=== PATIENT | male | born 1965 | race Caucasian/White ===

== ENCOUNTER 2017-09-04 11:03 | Emergency (ER) | payer MEDICARE, MEDICAID ==
[~2017-09-04] VITALS: Ht 177.8 cm; Wt 60.0 kg
[~2017-09-04 11:03] MED LIST: CYCL-1 PO; DICL75TA5 PO; HYDR-3965 PO; HYDR-569 PO
[2017-09-04 11:18] VITALS: BP 118/73
[2017-09-04] MEDS ORDERED: ONDA4TAB9 PO (12:12)
[2017-09-04] MEDS ORDERED: HYDR-3965 PO (12:12)
[2017-09-04] MEDS ORDERED: acetaminophen 325mg tablet PO ONE (12:15)
== END 2017-09-04 12:59 | disposition home or self-care (01) ==
LOC: ER 11:03
DX: G89.29 Other chronic pain (principal); M79.642 Pain in left hand; M79.641 Pain in right hand; G43.909 Migraine, unspecified, not intractable, without status migrainosus; Z88.0 Allergy status to penicillin; Z79.899 Other long term (current) drug therapy
CPT/HCPCS: 99283

== ENCOUNTER 2017-11-01 11:33 | Emergency (ER) | payer MEDICARE, MEDICAID ==
[~2017-11-01] VITALS: Ht 180.3 cm; Wt 61.0 kg
[2017-11-01 11:39] VITALS: BP 138/81
[2017-11-01] MEDS ORDERED: ONDA4TAB9 PO (12:35)
[2017-11-01] MEDS ORDERED: HYDR-565 PO (12:35)
== END 2017-11-01 12:55 | disposition home or self-care (01) ==
LOC: ER 11:34
DX: M79.641 Pain in right hand (principal); M79.642 Pain in left hand; G43.909 Migraine, unspecified, not intractable, without status migrainosus; M19.90 Unspecified osteoarthritis, unspecified site; Z88.0 Allergy status to penicillin; Z91.030 Bee allergy status; Z79.899 Other long term (current) drug therapy
CPT/HCPCS: 99283

== ENCOUNTER 2017-12-09 23:36 | Emergency (ER) | payer MEDICARE, MEDICAID ==
[~2017-12-09] VITALS: Ht 177.8 cm; Wt 62.7 kg
[2017-12-09 23:46] VITALS: BP 118/92
[2017-12-10] MEDS ORDERED: DOXY-200 PO (00:12)
== END 2017-12-10 00:37 | disposition home or self-care (01) ==
LOC: ER 23:37
DX: M79.674 Pain in right toe(s) (principal); L84 Corns and callosities; G43.909 Migraine, unspecified, not intractable, without status migrainosus; Z86.19 Personal history of other infectious and parasitic diseases; M19.90 Unspecified osteoarthritis, unspecified site; Z88.0 Allergy status to penicillin; Z91.030 Bee allergy status; Z98.890 Other specified postprocedural states
CPT/HCPCS: 99283

== ENCOUNTER 2017-12-25 06:55 | Emergency (ER) | payer MEDICAID, MEDICARE, OTHER ==
[~2017-12-25] VITALS: Ht 177.8 cm; Wt 62.0 kg
[2017-12-25 06:58] VITALS: BP_SYST 110
[2017-12-25] MEDS ORDERED: acetaminophen 325mg tablet PO ONE (07:25)
[2017-12-25] MEDS ORDERED: ibuprofen tablet 400 MG TABLET PO ONE (07:25)
[2017-12-25 07:28] VITALS: BP_DIAS 80
[2017-12-25] MEDS ORDERED: HYDROcodone/acetaminophen 5mg/325mg tablet PO ONE (07:30)
== END 2017-12-25 09:04 | disposition home or self-care (01) ==
LOC: ER 06:56
DX: S62.396A Other fracture of fifth metacarpal bone, right hand, initial encounter for closed fracture (principal); G43.909 Migraine, unspecified, not intractable, without status migrainosus; Z88.0 Allergy status to penicillin; Z91.030 Bee allergy status; Z79.899 Other long term (current) drug therapy; Z98.890 Other specified postprocedural states; W22.8XXA Striking against or struck by other objects, initial encounter; Y93.E5 Activity, floor mopping and cleaning; Y92.89 Other specified places as the place of occurrence of the external cause; Y99.8 Other external cause status
CPT/HCPCS: 29125; 73130; 99284

== ENCOUNTER 2018-01-03 09:10 | Outpatient (CLI) | payer OTHER ==
[2018-01-03 09:08] VITALS: BP 127/75
== END 2018-01-03 09:45 | disposition home or self-care (01) ==
LOC: ORTHO 09:10
PROVIDERS: ATTEND Nurse Practitioner Family
DX: M79.89 Other specified soft tissue disorders (principal); M25.541 Pain in joints of right hand; M19.90 Unspecified osteoarthritis, unspecified site; J45.909 Unspecified asthma, uncomplicated; F17.200 Nicotine dependence, unspecified, uncomplicated; F10.10 Alcohol abuse, uncomplicated; Z88.0 Allergy status to penicillin; Z86.19 Personal history of other infectious and parasitic diseases
CPT/HCPCS: 73130; 99213

== ENCOUNTER → 2018-01-24 | Outpatient (CLI) | payer OTHER ==
[2018-01-24 13:57] VITALS: BP 126/72
== END | disposition home or self-care (01) ==
LOC: ORTHO 14:00
PROVIDERS: ATTEND Nurse Practitioner Family
DX: S62.356D Nondisplaced fracture of shaft of fifth metacarpal bone, right hand, subsequent encounter for fracture with routine healing (principal); G43.909 Migraine, unspecified, not intractable, without status migrainosus; M19.90 Unspecified osteoarthritis, unspecified site; F17.210 Nicotine dependence, cigarettes, uncomplicated; J45.909 Unspecified asthma, uncomplicated; Z88.0 Allergy status to penicillin; Z91.030 Bee allergy status; Z72.89 Other problems related to lifestyle; X58.XXXD Exposure to other specified factors, subsequent encounter
CPT/HCPCS: 73130; 99213

== ENCOUNTER 2018-02-17 10:56 | Emergency (ER) | payer MEDICARE, MEDICAID ==
[~2018-02-17] VITALS: Ht 177.8 cm; Wt 64.0 kg
[2018-02-17 11:05] VITALS: BP 119/68
[2018-02-17] MEDS ORDERED: HYDR-565 PO (12:18)
== END 2018-02-17 12:33 | disposition home or self-care (01) ==
LOC: ER 10:56
DX: M79.641 Pain in right hand (principal); M79.642 Pain in left hand; G89.29 Other chronic pain; G43.909 Migraine, unspecified, not intractable, without status migrainosus; Z86.19 Personal history of other infectious and parasitic diseases; Z88.0 Allergy status to penicillin; Z91.030 Bee allergy status
CPT/HCPCS: 99283

== ENCOUNTER 2018-08-22 12:38 | Emergency (ER) | payer MEDICAID, MEDICARE ==
[~2018-08-22] VITALS: Ht 177.8 cm; Wt 68.2 kg
[~2018-08-22 12:38] MED LIST changes: +HYDR-4383 PO; -HYDR-569 PO
[2018-08-22 12:48] VITALS: BP 120/69
== END 2018-08-22 13:16 | disposition home or self-care (01) ==
LOC: ER 12:40
DX: G89.29 Other chronic pain (principal); M79.642 Pain in left hand; M79.641 Pain in right hand; G43.909 Migraine, unspecified, not intractable, without status migrainosus; M19.90 Unspecified osteoarthritis, unspecified site; Z88.0 Allergy status to penicillin; Z91.030 Bee allergy status
CPT/HCPCS: 99281

== ENCOUNTER 2020-11-21 10:05 | Emergency (ER) | payer MEDICARE, OTHER ==
[~2020-11-21] VITALS: Ht 177.8 cm; Wt 63.6 kg
[2020-11-21] MEDS ORDERED: HYDROcodone/acetaminophen 10/325mg tab PO ONE (10:20)
[2020-11-21] MEDS ORDERED: normal saline 1000ML IV soln IVB ONE (11:15)
[2020-11-21] MEDS ORDERED: propofol 10mg/ml 20ml vial IV ONE (11:15)
[2020-11-21] MEDS ORDERED: IBUP-1986 PO (12:43)
[2020-11-21] MEDS ORDERED: HYDR-3965 PO (12:43)
[2020-11-21] MEDS ORDERED: HYDROcodone/acetaminophen 5mg/325mg tablet PO ONE (12:45)
[2020-11-21 13:47] VITALS: BP 137/47
== END 2020-11-21 13:48 | disposition home or self-care (01) ==
LOC: ER 10:05
DX: S52.502A Unspecified fracture of the lower end of left radius, initial encounter for closed fracture (principal); S52.612A Displaced fracture of left ulna styloid process, initial encounter for closed fracture; G43.909 Migraine, unspecified, not intractable, without status migrainosus; M19.90 Unspecified osteoarthritis, unspecified site; Z86.19 Personal history of other infectious and parasitic diseases; Z88.0 Allergy status to penicillin; Z91.030 Bee allergy status; Z79.899 Other long term (current) drug therapy; Z98.890 Other specified postprocedural states; W01.0XXA Fall on same level from slipping, tripping and stumbling without subsequent striking against object, initial encounter; Z91.81 History of falling; Y93.89 Activity, other specified; Y92.89 Other specified places as the place of occurrence of the external cause; Y99.8 Other external cause status
CPT/HCPCS: 25605; 73100; 73110; 94799; 99152; 99285; J7030; 94760; 99153

== ENCOUNTER 2021-05-23 09:46 | Outpatient (CLI) | payer MEDICARE ==
[~2021-05-23 09:46] MED LIST changes: +IBUP-1986 PO
== END 2021-05-23 23:59 | disposition home or self-care (01) ==
LOC: LAB 09:46
DX: I45.10 Unspecified right bundle-branch block (principal); I44.4 Left anterior fascicular block; R00.1 Bradycardia, unspecified; F11.20 Opioid dependence, uncomplicated
CPT/HCPCS: 93005

== ENCOUNTER 2022-08-01 09:48 | Outpatient (CLI) | payer MEDICARE, MEDICAID | END 2022-08-01 23:59 | disposition home or self-care (01) | LOC: RAD 09:48 | PROVIDERS: ATTEND General Practice | DX: I44.5 Left posterior fascicular block (principal); I45.10 Unspecified right bundle-branch block; F11.20 Opioid dependence, uncomplicated | CPT/HCPCS: 93005 ==

== ENCOUNTER → 2023-05-07 | Outpatient (CLI) | payer MEDICAID | END | disposition home or self-care (01) | LOC: RAD 09:15 | PROVIDERS: ATTEND Physician Assistant | DX: I45.2 Bifascicular block (principal); F11.20 Opioid dependence, uncomplicated | CPT/HCPCS: 93005 ==

== ENCOUNTER 2023-05-14 08:32 | Emergency (ER) | payer MEDICAID ==
[~2023-05-14] VITALS: Ht 177.8 cm; Wt 68.5 kg
[2023-05-14 08:39] VITALS: TEMP 98.7
[2023-05-14 09:54] LABS: BASOPHILS # (AUTO) 0.1 X10'3 (0-0.2); BASOPHILS % (AUTO) 1.5 % (0-1); EOSINOPHILS # (AUTO) 0.2 X10'3 (0-0.9); EOSINOPHILS % (AUTO) 1.9 % (0-6); HEMOGLOBIN 13.8 g/dl (14.0-17.9); LYMPHOCYTES # (AUTO) 1.4 X10'3 (1.1-4.8); LYMPHOCYTES % (AUTO) 17.6 % (21-51); MEAN CORPUSCULAR HEMOGLOBIN 31.5 PG (27.0-31.0); MEAN CORPUSCULAR HGB CONC 33.7 g/dL (33.0-36.5); MEAN CORPUSCULAR VOLUME 93.3 FL (78-98); MEAN PLATELET VOLUME 8.4 FL (7.4-10.4); MONOCYTES # (AUTO) 0.7 X10'3 (0-0.9); MONOCYTES % (AUTO) 8.3 % (2-12); NEUTROPHILS # (AUTO) 5.8 X10'3 (1.8-7.7); NEUTROPHILS % (AUTO) 70.7 % (42-75); PLATELET COUNT 262 X10'3 (140-440); RED BLOOD COUNT 4.39 X10'6 (4.70-6.10); RED CELL DISTRIBUTION WIDTH 12.9 % (11.5-14.5); WHITE BLOOD COUNT 8.2 X10'3 (4.5-11.0)
[2023-05-14 10:16] LABS: ALANINE AMINOTRANSFERASE 53 U/L (12-78); ALBUMIN 3.6 G/DL (3.4-5.0); ALBUMIN/GLOBULIN RATIO 0.8 (1.1-1.5); ALKALINE PHOSPHATASE 89 IU/L (46-116); ANION GAP 3 (8-16); ASPARTATE AMINO TRANSFERASE 35 U/L (10-37); BILIRUBIN,TOTAL 0.2 MG/DL (0.1-1.0); BLOOD UREA NITROGEN 14 MG/DL (7-18); BUN/CREATININE RATIO 14.4 (10.0-20.0); CALCIUM 8.9 MG/DL (8.5-10.1); CHLORIDE 101 MMOL/L (99-107); CREATININE 0.97 MG/DL (0.60-1.10); GLUCOSE 91 MG/DL (70-104); POTASSIUM 4.5 MMOL/L (3.5-5.1); SODIUM 136 MMOL/L (135-145); TOTAL CARBON DIOXIDE 31.9 MMOL/L (24-32); TOTAL PROTEIN 7.9 G/DL (6.4-8.2); eCRCL 80 ML/MIN; eGFR 79 ML/MIN
[2023-05-14 10:22] LABS: PRO BRAIN NATRIURETIC PEPTIDE 74 PG/ML (0-125)
[2023-05-14] MEDS ORDERED: albuterol 2.5 MG/3 ML nebule NEB ONE (11:00)
[2023-05-14] MEDS ORDERED: dexamethasone 4mg tablet PO ONE (11:00)
[2023-05-14] MEDS ORDERED: ipratropium 0.5 MG/2.5ML nebule IH ONE (11:00)
[2023-05-14] MEDS ORDERED: dexamethasone 1mg tablet PO ONE (11:10)
[2023-05-14 11:17] VITALS: PULSE 50; PULSE 57; RESP 16
[2023-05-14] MEDS ORDERED: ALBU6.7H14 INH (12:58)
[2023-05-14] MEDS ORDERED: PRED20TA PO (13:00)
[2023-05-14] MEDS ORDERED: AZIT-164 PO (13:10)
[2023-05-14 13:14] VITALS: BP 108/68; PULSE 50; RESP 18; O2SAT 95
== END 2023-05-14 13:19 | disposition home or self-care (01) ==
LOC: ER 08:32
DX: J40 Bronchitis, not specified as acute or chronic (principal); R05.9 Cough, unspecified; F10.90 Alcohol use, unspecified, uncomplicated; G43.909 Migraine, unspecified, not intractable, without status migrainosus; Z88.0 Allergy status to penicillin; Z91.030 Bee allergy status; Z79.2 Long term (current) use of antibiotics; Z79.899 Other long term (current) drug therapy; Z79.1 Long term (current) use of non-steroidal anti-inflammatories (NSAID)
CPT/HCPCS: 36415; 71045; 80053; 83880; 84484; 85025; 93005; 99285; J8540; 94760

== ENCOUNTER 2023-06-25 11:02 | Emergency (ER) | payer MEDICAID ==
[~2023-06-25] VITALS: Ht 175.3 cm; Wt 70.9 kg
[~2023-06-25 11:02] MED LIST changes: +ALBU6.7H14 INH
[2023-06-25 11:53] VITALS: BP 100/74; PULSE 97; RESP 16; TEMP 97.5; O2SAT 96
[2023-06-25] MEDS ORDERED: ALBU18HF2 INH (12:08)
== END 2023-06-25 12:29 | disposition home or self-care (01) ==
LOC: ER 11:02
DX: J45.909 Unspecified asthma, uncomplicated (principal); G43.909 Migraine, unspecified, not intractable, without status migrainosus; M19.90 Unspecified osteoarthritis, unspecified site; Z72.89 Other problems related to lifestyle; Z98.890 Other specified postprocedural states; Z88.0 Allergy status to penicillin; Z91.030 Bee allergy status; Z79.899 Other long term (current) drug therapy
CPT/HCPCS: 93005; 99283

== ENCOUNTER 2024-05-30 15:56 | Outpatient (CLI) | payer MEDICAID ==
[~2024-05-30 15:56] MED LIST changes: +ALBU18HF2 INH
== END 2024-05-30 23:59 | disposition home or self-care (01) ==
LOC: RAD 15:56
PROVIDERS: ATTEND Physician Assistant
DX: I45.10 Unspecified right bundle-branch block (principal); R00.1 Bradycardia, unspecified; F11.20 Opioid dependence, uncomplicated
CPT/HCPCS: 93005